=== PATIENT | female | born 1985 | race African-American/Black ===

== ENCOUNTER 2022-11-18 09:48 | Emergency (ER) | payer MEDICAID, OTHER ==
[~2022-11-18] VITALS: Ht 165.1 cm; Wt 83.9 kg
--- NOTE | 2022-11-18 10:32 | NUR ---
DR العراقي AT BEDSIDE FOR EVALUATION.
--- NOTE | 2022-11-18 10:49 | NUR ---
SWAB SPECIMEN COLLECTED AND SENT TO LAB.
[2022-11-18] MEDS ORDERED: IBUP-1955 PO (10:55)
[2022-11-18 11:04] VITALS: BP 140/80
--- NOTE | 2022-11-18 11:04 | NUR ---
Patient discharged to home in stable condition. Written and verbal after care instructions given. Patient verbalizes understanding of instructions. Stressed follow up or return to ER for worsening s/s.
== END 2022-11-18 11:05 | disposition home or self-care (01) ==
LOC: ER 09:48
DX: J06.9 Acute upper respiratory infection, unspecified (principal); R07.89 Other chest pain; M54.89 Other dorsalgia; Z20.822 Contact with and (suspected) exposure to COVID-19
CPT/HCPCS: 71045; 86403; A4663

== ENCOUNTER 2025-08-12 14:24 | Emergency (ER) | payer MEDICAID ==
[~2025-08-12] VITALS: Ht 165.1 cm; Wt 86.2 kg
[~2025-08-12 14:24] MED LIST: IBUP-1953 PO; IBUP-1955 PO; PHEN-704 PO
[2025-08-12 14:41] VITALS: BP 136/82; O2SAT 99
[2025-08-12 15:07] LABS: *BILIRUBIN,URIN NEGATIVE (NEGATIVE); *BLOOD, URINE NEGATIVE (NEGATIVE); *CLARITY,URINE CLEAR (CLEAR); *COLOR,URINE YELLOW (YELLOW); *KETONES,URINE NEGATIVE (NEGATIVE); *PROTEIN,URINE NEGATIVE (NEGATIVE); *UROBILINOGEN,URINE 0.2 E.U./dl (NORMAL); LEUKOCYTE ESTERASE ,URINE NEGATIVE (NEGATIVE); NITRITE, URINE NEGATIVE (NEGATIVE); UGLUCOSE NEGATIVE (NEGATIVE)
== END 2025-08-12 16:16 | disposition left against medical advice (07) ==
LOC: ER 14:24
DX: E55.9 Vitamin D deficiency, unspecified (principal); R20.2 Paresthesia of skin; N39.0 Urinary tract infection, site not specified; N64.4 Mastodynia; Z79.1 Long term (current) use of non-steroidal anti-inflammatories (NSAID)
CPT/HCPCS: A4606; A4663